=== PATIENT | female | born 1995 | race Caucasian/White ===

== ENCOUNTER 2022-05-30 10:16 | Emergency (ER) | payer MEDICAID, SELFPAY ==
[2022-05-30 10:21] VITALS: BP 139/92; PULSE 87; RESP 18; TEMP 35.9; O2SAT 98; BMI 48.6
--- NOTE | 2022-05-30 10:55 | ED_ITS ---
HPI - Abdominal Pain General Chief Complaint: Abdominal Pain Stated Complaint: Dhiarea for 5 days and bad stomach cramps Time Seen by Provider: 05/30/22 10:47 History of Present Illness HPI narrative: This 27-year-old female comes in reporting diarrhea and crampy abdominal pain for the past 5 days. She states that she does have a history of irritable bowel syndrome and has symptoms like this. She has been taking dicyclomine. She reports crampy abdominal pain that gets very intense and then goes away. She does not have any fever. She does have some nausea but no vomiting. Related Data Home Medications Medication Instructions Recorded Confirmed L.acidophil-L.plantar-Bifido 7 1 cap PO DAILY 05/30/22 05/30/22 dicyclomine 10 mg capsule 10 mg PO QID 05/30/22 05/30/22 Previous Rx's Medication Instructions Recorded diphenoxylate-atropine 2.5 1 tab PO DAILY #10 tabs 05/30/22 mg-0.025 mg tablet (Lomotil) ketorolac 10 mg tablet 10 mg PO Q8H 5 days #15 tabs 05/30/22 ondansetron HCl 4 mg tablet 4 mg PO Q6H #20 tabs 05/30/22 Allergies Allergy/AdvReac Type Severity Reaction Status Date / Time Penicillins Allergy Mild hives Verified 05/30/22 10:27 Review of Systems Status of ROS Reports: 10 or more systems reviewed and unremarkable except as noted in History and below Narrative Constitutional: No fevers, no weight gain or loss. Eyes: No discharge. No vision changes. HENT: No congestion, no sore throat, no ear pain. Cardiovascular: No chest pain, no palpitations. Respiratory: No shortness of breath, no wheezes, no cough. Gastrointestinal: No vomiting. Crampy abdominal pain. Diarrhea. Genitourinary: No dysuria, no hematuria. Musculoskeletal: Normal range of motion. Skin: No rashes, no pruritis. Neurological: No dizziness, weakness, sensory change, speech change. Endo/Heme/Allergies: No bruising or bleeding. No polydipsia. Pysch: no suicidality, no anxiety, no insomnia. All other systems reviewed and are negative. PFSH PFSH Social History Smoking Status: Never smoker How often do you have a drink containing alcohol: monthly or less AUDIT-C Alcohol total score: 1 Non-prescribed substance use: denies use Exam Narrative: Exam Narrative: Constitutional: Well-developed, well-nourished, no acute distress. HEENT: Normocephalic, atraumatic. Neck: Normal range of motion. Nontender. Supple. Heart: Regular. No murmurs. Normal rate. Intact distal pulses. Lungs: Clear to auscultation. No chest discomfort. No wheezes, rhonchi, or rales. Abdomen: Normal bowel sounds. Nontender. No rebound tenderness. Genitalia: Deferred. Back: No midline tenderness. Normal range of motion. Extremities: Normal range of motion. No injury. Skin: Intact. No rash. Warm. No erythema or pallor. Neurologic: No altered sensation. No weakness. Alert and oriented. Psychiatric: No suicidality. No anxiety or depression. No insomnia. Nursing notes and vitals signs are reviewed. Const: Vital Signs, click to edit/add: Vital Signs - 24 hr 05/30/22 10:21 05/30/22 11:33 Temperature 96.7 F L Pulse Rate [Right Pulse Oximeter] 87 71 Respiratory Rate 18 20 Blood Pressure [Ri ght Upper Arm] 139/92 H 130/78 Pulse Oximetry 98 97 Oxygen Delivery Me thod Room Air Room Air Course Vital Signs Vital signs: Initial Vital Signs Temperature 96.7 F L 05/30/22 10:21 Temperature Source Temporal Artery Scan 05/30/22 10:21 Pulse Rate 87 05/30/22 10:21 Respiratory Rate 18 05/30/22 10:21 Blood Pressure 139/92 H 05/30/22 10:21 Blood Pressure Mean 107 05/30/22 10:21 Blood Pressure Position Sitting 05/30/22 10:21 Pulse Oximetry 98 05/30/22 10:21 Oxygen Delivery Method 05/30/22 10:21 Vital Signs Temperature 96.7 F L 05/30/22 10:21 Pulse Rate 87 05/30/22 10:21 Respiratory Rate 18 05/30/22 10:21 Blood Pressure 139/92 H 05/30/22 10:21 Pulse Oximetry 98 05/30/22 10:21 Oxygen Delivery Method 05/30/22 10:21 Temperature 96.7 F L 05/30/22 10:21 Pulse Rate 71 05/30/22 11:33 Respiratory Rate 20 05/30/22 11:33 Blood Pressure 130/78 05/30/22 11:33 Pulse Oximetry 97 05/30/22 11:33 Oxygen Delivery Method 05/30/22 11:33 MDM - Abdominal Pain MDM Narrative Medical decision making narrative: This patient comes in because of persistent diarrhea and crampy abdominal pain over the past 5 days. This is not atypical for her but it is lasting longer and she relates that to her irritable bowel syndrome. An IV was established where she received a L of normal saline, Toradol 30 mg, and Zofran 4 mg. This brought significant relief to her symptoms. Lab results returned with normal findings. She is okay to return home. I did provide prescription for Toradol, Zofran, and a few tablets of Lomotil. Lab Data Labs: Lab Results 05/30/22 05/30/22 Range/Units 11:15 11:15 WBC 6.41 (4.50-11.00) K/uL RBC 4.59 (4.00-5.20) m/uL Hgb 13.5 (12.0-16.0) gm/dL Hct 39.9 (33.0-51.0) % MCV 87 (80-100) fL MCH 29 (26-34) pg MCHC 34 (32-36) gm/dL RDW Coeff of Allen 12.1 (11.5-15.5) % Plt Count 329 (140-440) K/uL Neut % (Auto) 52.6 (42.0-72.0) % Lymph % (Auto) 31.4 (20-44) % [place] % (Auto) 13.6 H (0.0-11.0) % Eos % (Auto) 1.9 (0.0-7.0) % Baso % (Auto) 0.2 (0.0-3.0) % Neut # (Auto) 3.38 (1.7-7.0) K/uL Lymph # (Auto) 2.01 (0.90-2.90) K/uL [place] # (Auto) 0.90 (0.00-0.90) K/UL Eos # (Auto) 0.12 (0.00-0.50) K/uL Baso # (Auto) 0.01 (0.00-0.30) K/uL Sodium 139 (135-149) mmol/L Potassium 4.2 (3.6-5.1) mmol/L Chloride 109 (96-114) mmol/L Carbon Dioxide 23 (20-32) mmol/L BUN 12 (5-24) mg/dL Creatinine 0.6 (0.5-1.5) mg/dL Estimated Creat Clear 138.17 Estimated GFR 127 ml/min Glucose 89 (60-115) mg/dL Calcium 8.8 (8.4-10.6) mg/dL Discharge Plan Discharge Clinical Impression: Diarrhea, Irritable bowel syndrome Patient Disposition: Home, Self-Care Condition: Improved Additional Instructions: Take medication as needed and indicated. Diet as tolerated. Follow up with MD or return if worsening. Prescriptions: New ondansetron HCl 4 mg tablet 4 mg PO Q6H Qty: 20 0RF diphenoxylate-atropine [Lomotil] 2.5-0.025 mg tablet 1 tab PO DAILY Qty: 10 0RF ketorolac 10 mg tablet 10 mg PO Q8H 5 Days Qty: 15 0RF No Action dicyclomine 10 mg capsule 10 mg PO QID Label Comments: TAKE 1 CAPSULE BY MOUTH UP TO FOUR TIMES DAILY L.acidophil-L.plantar-Bifido 7 [up4 Probiotics Adult] 1 cap PO DAILY Follow Up/Referrals: Provider,Not a Local [Primary Care Provider] - Stand Alone Forms: MyHealth Info Instructions
[2022-05-30 11:21] LABS: Basophils Absolute Auto 0.01 K/uL (0.00-0.30); Basophils Percent Auto 0.2 % (0.0-3.0); Eosinophils Absolute Auto 0.12 K/uL (0.00-0.50); Eosinophils Percent Auto 1.9 % (0.0-7.0); Hematocrit 39.9 % (33.0-51.0); Hemoglobin* 13.5 gm/dL (12.0-16.0); Immature Granulocytes Abs Auto 0.02 K/uL (0.00-0.30); Immature Granulocytes Pct Auto 0.3 %; Lymphocytes Absolute Auto 2.01 K/uL (0.90-2.90); Lymphocytes Percent Auto 31.4 % (20-44); Mean Corpuscular HGB Conc 34 gm/dL (32-36); Mean Corpuscular Hemoglobin 29 pg (26-34); Mean Corpuscular Volume 87 fL (80-100); Monocytes Percent Auto 13.6 % (0.0-11.0); Neutrophils Absolute Auto 3.38 K/uL (1.7-7.0); Neutrophils Percent Auto 52.6 % (42.0-72.0); Platelet Count* 329 K/uL (140-440); RDW Coefficient of Variation % 12.1 % (11.5-15.5); Red Blood Count 4.59 m/uL (4.00-5.20); White Blood Count* 6.41 K/uL (4.50-11.00)
[2022-05-30] MEDS: KETOROLAC 30 MG/ML inj IVP (11:23)
[2022-05-30] MEDS: 0.9 % SODIUM CHLORIDE 1000 ml 1,000 ML IV (11:26)
[2022-05-30] MEDS: ONDANSETRON 2 MG/ML inj 4 MG IVP (11:26)
[2022-05-30 11:33] VITALS: BP 130/78; PULSE 71; RESP 20; O2SAT 97
[2022-05-30 11:36] LABS: Slide Review Reflex No
[2022-05-30 11:39] LABS: Chloride* 109 mmol/L (96-114); Potassium* 4.2 mmol/L (3.6-5.1); Sodium* 139 mmol/L (135-149)
[2022-05-30 11:42] LABS: Blood Urea Nitrogen* 12 mg/dL (5-24); Calcium* 8.8 mg/dL (8.4-10.6); Carbon Dioxide* 23 mmol/L (20-32); Creatinine* 0.6 mg/dL (0.5-1.5); Est. Creatinine Clearance* 138.17; Estimated Glomerular Filt Rate 127 ml/min; Glucose* 89 mg/dL (60-115)
== END 2022-05-30 12:29 | disposition home or self-care (01) ==
PROVIDERS: Emergency Provider Emergency Medicine Emergency Medical Services
DX: K58.0 Irritable bowel syndrome with diarrhea (principal)
CPT/HCPCS: 36415; 80048; 85025; 96361; 96374; 96375; 99284; J1885; J2405; J7030